=== PATIENT | male | born 1945 | race Caucasian/White ===

== ENCOUNTER 2021-04-20 10:34 | Emergency (ER) | payer OTHER, MEDICAID ==
[~2021-04-20] VITALS: Ht 172.7 cm; Wt 69.9 kg
[~2021-04-20 10:34] MED LIST: AMIT50TA5 PO; AMLO-483 PO; ATOR40TA52 PO; BACL20TA PO; CHOL20007 PO; CYA100I IM; DOCU250C4 PO; FOLITAB22 PO; HYDR-4188 PO; LORA-622 PO; METH2.5T PO; PANT40TA2 PO; PRE5T PO; PREG200C19 PO; TERA10CA36 PO; TRAZ1TAB12 PO; TURM500C3 OR
[2021-04-20 13:40] VITALS: BP 116/65
[2021-04-20] MEDS ORDERED: methylPREDNISolone SOD SUCC 125 MG/2 ML VL IM ONE (13:45)
== END 2021-04-20 14:27 | disposition home or self-care (01) ==
LOC: ER 10:34
DX: M06.9 Rheumatoid arthritis, unspecified (principal); E78.5 Hyperlipidemia, unspecified; Z79.899 Other long term (current) drug therapy
CPT/HCPCS: 96372; 99283; J2930

== ENCOUNTER 2022-03-23 10:38 | Emergency (ER) | payer MEDICAID, OTHER ==
[~2022-03-23] VITALS: Ht 172.7 cm; Wt 71.5 kg
[2022-03-23] MEDS ORDERED: oxyCODONE ER 10 MG TAB PO ONE (12:30)
[2022-03-23 13:00] VITALS: BP 128/66
[2022-03-23] MEDS ORDERED: PRED20TA2 PO (13:09)
[2022-03-23] MEDS ORDERED: TRAM-297 PO (13:09)
== END 2022-03-23 13:23 | disposition home or self-care (01) ==
LOC: ER 10:38
DX: M48.061 Spinal stenosis, lumbar region without neurogenic claudication (principal); M54.16 Radiculopathy, lumbar region; E78.5 Hyperlipidemia, unspecified; G89.29 Other chronic pain; M54.50 Low back pain, unspecified; Z79.899 Other long term (current) drug therapy; Z88.8 Allergy status to other drugs, medicaments and biological substances
CPT/HCPCS: 72131

== ENCOUNTER 2023-01-24 09:24 | Emergency (ER) | payer MEDICAID ==
[~2023-01-24] VITALS: Ht 172.7 cm; Wt 69.4 kg
[~2023-01-24 09:24] MED LIST changes: +AMIT50TA10 PO; -AMIT50TA5 PO; -AMLO-483 PO; +AMLO1TAB21 PO; +DOCU250C12 PO; -DOCU250C4 PO; +PRED20TA2 PO; +TRAM-297 PO
[2023-01-24 09:53] VITALS: BP 144/62; PULSE 73; RESP 20; TEMP 98.1; O2SAT 96
[2023-01-24] MEDS ORDERED: MUPI2OIN2 EX (12:45)
[2023-01-24] MEDS ORDERED: MUPIROCIN 2% OINT 15gm or 22gm TOP ONE (12:45)
[2023-01-24] MEDS ORDERED: HYDROcodone-ACET 5/325MG TAB PO ONE (12:45)
[2023-01-24] MEDS ORDERED: CEPH500C PO (12:45)
[2023-01-24] MEDS ORDERED: cefTRIAXone SOD 1,000 MG VL IM ONE (12:45)
== END 2023-01-24 13:15 | disposition home or self-care (01) ==
LOC: ER 09:24
DX: S33.5XXA Sprain of ligaments of lumbar spine, initial encounter (principal); S63.8X2A Sprain of other part of left wrist and hand, initial encounter; S63.8X1A Sprain of other part of right wrist and hand, initial encounter; S60.411A Abrasion of left index finger, initial encounter; S60.410A Abrasion of right index finger, initial encounter; T14.8XXA Other injury of unspecified body region, initial encounter; E78.5 Hyperlipidemia, unspecified; F12.90 Cannabis use, unspecified, uncomplicated; Z79.899 Other long term (current) drug therapy; Z98.890 Other specified postprocedural states; Z91.040 Latex allergy status; W01.0XXA Fall on same level from slipping, tripping and stumbling without subsequent striking against object, initial encounter; Y93.89 Activity, other specified; Y92.89 Other specified places as the place of occurrence of the external cause; Y99.8 Other external cause status
CPT/HCPCS: 72131; 73130; 96372; 99285; J0696

== ENCOUNTER 2023-04-14 09:45 | Emergency (ER) | payer MEDICARE, MEDICAID ==
[~2023-04-14] VITALS: Ht 172.7 cm; Wt 69.8 kg
[~2023-04-14 09:45] MED LIST changes: +CEPH500C PO; +MUPI2OIN2 EX
[2023-04-14 10:42] VITALS: BP 150/77; PULSE 65; RESP 18; TEMP 97.8; O2SAT 96
[2023-04-14] MEDS ORDERED: ACET-1080 PO (11:29)
== END 2023-04-14 11:37 | disposition home or self-care (01) ==
LOC: ER 09:45
DX: S46.812A Strain of other muscles, fascia and tendons at shoulder and upper arm level, left arm, initial encounter (principal); M19.90 Unspecified osteoarthritis, unspecified site; E78.5 Hyperlipidemia, unspecified; F15.90 Other stimulant use, unspecified, uncomplicated; Z98.890 Other specified postprocedural states; Z79.1 Long term (current) use of non-steroidal anti-inflammatories (NSAID); Z79.899 Other long term (current) drug therapy; Z91.041 Radiographic dye allergy status; V29.99XA Rider (driver) (passenger) of other motorcycle injured in unspecified traffic accident, initial encounter; Y93.89 Activity, other specified; Y92.89 Other specified places as the place of occurrence of the external cause; Y99.8 Other external cause status
CPT/HCPCS: 73030

== ENCOUNTER → 2023-10-11 | Outpatient (CLI) | payer OTHER, MEDICAID ==
[~2023-10-11] MED LIST changes: +ACET-1080 PO; -AMIT50TA10 PO; +AMIT50TA12 PO; -HYDR-4188 PO; +HYDR-4491 PO
[2023-10-11 14:09] LABS: Urine Bacteria None Seen /hpf (None Seen)
[2023-10-11 14:17] LABS: Basophils # (auto) 0 10 ^3/uL (0-0.2); Basophils % (auto) 0.5 % (0.0-2.0); Eosinophils # (auto) 0.1 10 ^3/uL (0-0.8); Eosinophils % (auto) 0.9 % (0.0-7.0); Hematocrit 40.7 % (41.0-53.0); Hemoglobin 13.4 g/dL (13.5-17.5); Lymphocytes # (auto) 1.5 10 ^3/uL (0.4-5.4); Lymphocytes % (auto) 17.8 % (10.0-50.0); Mean Corpuscular Hemoglobin 32.6 pg (28.0-32.0); Mean Corpuscular Volume 98.8 fL (80.0-100.0); Monocytes # (auto) 0.6 10 ^3/uL (0-1.3); Monocytes % (auto) 7.6 % (0.0-12.0); Neutrophils # (auto) 6.2 10 ^3/uL (1.6-8.6); Neutrophils % (auto) 73.2 % (37.0-80.0); Red Blood Cells 4.12 10^6/uL (4.5-5.90); Red Cell Distribution Width 14.2 % (11.8-14.3); White Blood Cell 8.5 10^3/uL (4.4-10.8)
[2023-10-11 14:27] LABS: Urine Blood Negative /uL (Negative); Urine Clarity Clear (Clear); Urine Color Yellow (Yellow); Urine Mucus FEW (None Seen); Urine Protein, UAD TRACE (Negative); Urine Specific Gravity 1.023 (1.001-1.035); Urine Urobilinogen Normal (Negative); Urine WBC 2 /hpf (0 - 3); Urine pH 5.5 (5.0-9.0)
[2023-10-11 14:36] LABS: Alanine Aminotransferase 24 U/L (7-40); Albumin 4.5 g/dL (3.2-4.8); Alkaline Phosphatase 62 U/L (46-116); Anion Gap 8 (5-15); Aspartate Aminotransferase 23 U/L (13-40); BUN/Creatinine Ratio 18.4 (10.0-20.0); Bilirubin, Total 0.6 mg/dL (0.2-1.0); Blood Urea Nitrogen 18 mg/dL (9-23); Calcium 9.7 mg/dL (8.5-10.1); Carbon Dioxide 26 mmol/L (20-30); Chloride 106 mmol/L (98-107); Cholesterol 162 mg/dL (< 200); Glucose 84 mg/dL (74-106); HDL Cholesterol 85 mg/dL (40-59); LDL Cholesterol 61 mg/dL (< 100); Potassium 4.4 mmol/L (3.5-5.1); Sodium 140 mmol/L (136-145); Triglycerides 49 mg/dL (< 150)
[2023-10-11 16:02] LABS: Folate (Folic Acid) > 24.00 ng/mL (>5.38)
[2023-10-12 07:06] LABS: RPR Non Reactive (Non Reactive)
[2023-10-12 09:07] LABS: Rheumatoid Arthritis Factor <10.0 IU/mL (<14.0)
== END | disposition home or self-care (01) ==
LOC: LAB 14:04
PROVIDERS: ATTEND Internal Medicine
DX: Z00.00 Encounter for general adult medical examination without abnormal findings (principal); D64.9 Anemia, unspecified; M11.20 Other chondrocalcinosis, unspecified site; E72.50 Disorder of glycine metabolism, unspecified; M19.90 Unspecified osteoarthritis, unspecified site
CPT/HCPCS: 36415; 80053; 80061; 81001; 82306; 82607; 82746; 83036; 84443; 85025; 86431; 86592